=== PATIENT | male | born 1995 | race Caucasian/White ===

== ENCOUNTER 2021-09-07 19:57 | Emergency (ER) | payer SELFPAY ==
[~2021-09-07] VITALS: Ht 170.2 cm; Wt 59.1 kg
[2021-09-07] MEDS ORDERED: CefTRIAXone SODIUM 1 GM/VIAL IM ONE (20:15)
[2021-09-07] MEDS ORDERED: LIDOCAINE/PF 1% 2 ML VIAL IM ONE (20:15)
[2021-09-07] MEDS ORDERED: AZITHROMYCIN 500 MG TABLET PO ONE (20:15)
[2021-09-07 21:20] VITALS: BP 120/80
== END 2021-09-07 21:20 | disposition home or self-care (01) ==
LOC: EMS 19:59
DX: N34.2 Other urethritis (principal); F12.90 Cannabis use, unspecified, uncomplicated
CPT/HCPCS: 87491; 87591; 96372; 99283; J0696; J3490; Q9967